=== PATIENT | male | born 1940 | race Caucasian/White ===

== ENCOUNTER → 2016-07-05 | Outpatient (CLI) | payer OTHER ==
[~2016-07-05] MED LIST: AGGRENOX; ASPIRIN PO; COZAAR PO; FISH OIL 1,0001 CAP PO; LIPITOR PO; LODINE400 MG PO; LOSARTAN-HCTZ1 EACH PO; METOPROLOL TAR25 MG PO; MULTI VITAMIN1 EACH PO; VITAL-D RX TABL1 TAB PO; ZYRTEC10 M2 PO; [UNRECOGNIZED DRUG - REMARK]
--- NOTE | ~2016-07-05 | CT3 ---
[facility] A Service of [facility] RADIOLOGY TEXT RESULTS PATIENT: CARMITA NIETO LOCATION: [facility] : 42 UNIT #: [id number] AGE: [address]: Florentin Gabriel MD SEX: M ORDER DR: [id number] [facility] [place] [address] [place], [place] [address] [id number] O MR#: [id number] Acc #: [id number] NAME: CARMITA NIETO : 1940 SEX: M STUDY DATE/TIME: 07/05/2016 13:09 UNIT: [facility] ROOM: STUDY DESCRIPTION: CT Abd and Pelv WWo Cont Attending Physician: Florentin Gabriel M.D. Referring Physician: Florentin Gabriel M.D. Ordering Physician: Florentin Gabriel M.D. Primary Care Physician: Lois Anderson M.D. MEDICAL IMAGING REPORT This report is preliminary unless electronic signature is present EXAM CT abdomen and pelvis without and with contrast, hematuria protocol, 07/05/2016. HISTORY Hematuria since , per patient. Elevated PSA levels. Previous appendectomy, hernia repair, laminectomy. COMPARISON None. PROCEDURE 3-mm noncontrast axial images through the abdomen and pelvis. Postcontrast imaging through the abdomen in the corticomedullary and nephrographic phases were obtained. 5-minute delayed expiratory postcontrast phase imaging was obtained through the abdomen and pelvis. Enteric contrast not administered. Sagittal and coronal reformatted images were obtained. FINDINGS ABDOMEN FINDINGS: On noncontrast imaging, no renal or ureteral stone is seen. On postcontrast imaging, no cystic or solid renal mass lesion is seen on either side. No hydronephrosis or hydroureter. On delayed postcontrast expiratory phase imaging, no suspicious filling defects are seen within the renal collecting systems, ureters or urinary bladder. Urinary bladder appears unremarkable. Lung bases appear free of consolidation. The hepatic dome is not completely included in the imaging field of view. The imaged pancreas appears normal. The gallbladder, spleen, pancreas, [facility] A Service of [facility] RADIOLOGY TEXT RESULTS PATIENT: CARMITA NIETO LOCATION: [facility] : 41 UNIT #: [id number] AGE: [address]: Florentin Gabriel MD SEX: M ORDER DR: adrenals within normal limits. There is a small periampullary diverticulum within the duodenum. The unopacified bowel appears nonthickened and noninflamed. PELVIS FINDINGS: Prostate gland does not apparent enlarged. Urinary bladder and rectum appear normal. No pelvic adenopathy or free fluid is seen. There is lumbar levoscoliosis. Advanced loss of disc height at L5-S1, and, to a lesser degree, at L2-L3. No acute osseous abnormalities are identified. IMPRESSION 1. Normal precontrast and postcontrast appearance of the kidneys, ureters and urinary bladder. No CT explanation for the patient's hematuria. 2. No acute findings within the abdomen or pelvis. Dictated by... Kelsey Aguilar M.D. THIS IS AN ELECTRONICALLY VERIFIED REPORT Kelsey Aguilar M.D. at 07/08/2016 8:33 AM Cheryl TD: 07/05/2016 18:43 JOB #: [id number] MEDICAL IMAGING REPORT Page 1 of 1 COPY
[2016-07-05 13:46] LABS: POC - CREATININE 0.88 mg/dL (0.64-1.27); POC - GFR >60.0 mL/min (>60)
== END | disposition home or self-care (01) ==
LOC: CCAT 11:56
PROVIDERS: Urology
DX: R31.9 Hematuria, unspecified (principal)
CPT/HCPCS: 74178; 82565; Q9967